=== PATIENT | male | born 1980 ===

== ENCOUNTER → 2022-05-30 12:10 | Outpatient (CLI) | payer OTHER, SELFPAY ==
--- NOTE | 2022-05-30 12:16 | DI.RAD.S_ITS ---
PROCEDURE: XR CHEST 2V INDICATIONS: pneumothorax TECHNIQUE: 2 views of the chest were acquired. COMPARISON: None. FINDINGS: Lungs and pleura: No suspicious focal airspace opacity visualized. Staple line projects over the right mid lung. No pleural effusions or pneumothorax. Mediastinum: Mediastinal contours are normal. Heart size is normal. Bones and chest wall: Multiple right rib fractures. Right clavicle plate screw present. IMPRESSION: No pneumothorax visualized. Dictated by: Dylon Franz M.D. on 05/30/2022 at 15:40 Approved by: Dylon Franz M.D. on 05/30/2022 at 15:43
--- NOTE | 2022-05-30 12:16 | DI.RAD.S_ITS ---
PROCEDURE: XR HAND RT 2V INDICATIONS: RIGHT THUMB FRACTURE TECHNIQUE: 2 views of the hand(s) acquired. COMPARISON: None. FINDINGS: Bones: No acute fracture or dislocations. Screw at the 1st digit interphalangeal joint. Suspect prior ulnar styloid fracture. Suspect prior fracture at the 2nd metacarpal. Carpal bones are normally aligned. No suspicious bony lesions. Soft tissues: No suspicious soft tissue calcifications. IMPRESSION: No acute fracture. Screw at the 1st digit interphalangeal joint. Dictated by: Kong Black M.D. on 05/30/2022 at 14:42 Approved by: Kong Black M.D. on 05/30/2022 at 14:44
--- NOTE | 2022-05-30 12:16 | DI.RAD.S_ITS ---
PROCEDURE: XR SCAPULA RT INDICATIONS: right glenoid, scapular, clavicular fracture TECHNIQUE: 3 views of the scapula were acquired. COMPARISON: None. FINDINGS: Bones: Old fracture deformity of the body of the scapula appears appropriately healed. Normal bone mineralization. Old healed right-sided rib fractures noted associated with pulmonary suture line. Instrumented healed clavicular fracture Soft tissues: Overlying soft tissues appear normal. IMPRESSION: Old healed scapular fracture deformity associated with healed rib fractures and instrumented healed right clavicular fracture Approved by: Daniel Stokes M.D. on 05/30/2022 at 17:56
--- NOTE | 2022-05-30 12:16 | DI.RAD.S_ITS ---
PROCEDURE: XR CLAVICLE RT INDICATIONS: right glenoid, scapular, clavicular fracture TECHNIQUE: 2 views of the clavicle were acquired. COMPARISON: None. FINDINGS: Bones: Healed midclavicular fracture associated with cortical plate and screw hardware in good position Soft tissues: No suspicious soft tissue calcifications. IMPRESSION: Healed instrumented mid clavicular fracture Approved by: Daniel Stokes M.D. on 05/30/2022 at 18:00
--- NOTE | 2022-05-30 12:16 | DI.RAD.S_ITS ---
PROCEDURE: XR RIBS BI 3V INDICATIONS: multiple rib fractures TECHNIQUE: Frontal view of the chest, oblique views of both ribs COMPARISON: [facility], CR, XR CHEST 2V, 05/30/2022, 12:27. FINDINGS: Multiple remote appearing right rib fractures are present. No definite pneumothorax. Staple line projects over the right mid lung. No large pleural effusion. IMPRESSION: Multiple remote appearing right rib fractures. Dictated by: Dylon Franz M.D. on 05/30/2022 at 15:43 Approved by: Dylon Franz M.D. on 05/30/2022 at 15:47
--- NOTE | 2022-05-30 12:16 | DI.RAD.S_ITS ---
PROCEDURE: XR HAND LT 2V INDICATIONS: left metacarpals 3-5 dislocation TECHNIQUE: 2 views of the hand(s) acquired. COMPARISON: None. FINDINGS: Bones: No acute fractures or dislocations. Carpal bones are normally aligned. No suspicious bony lesions. Soft tissues: No suspicious soft tissue calcifications. IMPRESSION: No acute osseous abnormality. Dictated by: Kong Black M.D. on 05/30/2022 at 14:44 Approved by: Kong Black M.D. on 05/30/2022 at 14:45
--- NOTE | 2022-05-30 12:16 | DI.RAD.S_ITS ---
PROCEDURE: XR ANKLE RT MIN 3V INDICATIONS: right talar fracture TECHNIQUE: 3 views of the ankle were acquired. COMPARISON: None. FINDINGS: Bones: No fractures or dislocations. Lucencies in the talus are presumed to represent evidence of previous screw fixation. There is probable mild degenerative change involving the talocalcaneal joint. Ankle mortise is normally aligned. No suspicious bony lesions. Soft tissues: No tibiotalar joint effusion. Achilles tendon appears normal. IMPRESSION: There appears to have been previous orthopedic fixation of the talus. There is now apparent talocalcaneal degenerative change. Dictated by: Chito Malave M.D. on 05/30/2022 at 15:25 Approved by: Chito Malave M.D. on 05/30/2022 at 15:27
--- NOTE | 2022-06-05 10:10 | PM.PFT.1 ---
Pulmonary Function Test Referral & Results Date Patient Seen: 05/30/22 Requesting provider: Malcolm Woodson Results: The spirometry demonstrates an FVC of 2.74 L which is 62% of predicted. The FEV1 was measured at 2.11 L which is 59% of predicted. The FEV1/FVC ratio was 77 which is 97% of predicted. Following the administration of bronchodilator there was 11% improvement in FEV1 and a 40% improvement in FEF 25-75%. Interpretation: This study demonstrates probable mild to moderate obstructive lung disease based on reduction FEV1. FEV1/FVC ratio is preserved however. In addition there is evidence of benefit particularly small airway flow after bronchodilator as noted above No lung volumes or diffusing capacity were performed Clinical correlation suggested
== END ==
PROVIDERS: Referring Provider Chiropractor; Visit Provider Chiropractor
DX: J93.9 Pneumothorax, unspecified (principal); S92.101A Unspecified fracture of right talus, initial encounter for closed fracture; S22.43XS Multiple fractures of ribs, bilateral, sequela; S42.141D Displaced fracture of glenoid cavity of scapula, right shoulder, subsequent encounter for fracture with routine healing; S62.307A Unspecified fracture of fifth metacarpal bone, left hand, initial encounter for closed fracture; S62.514D Nondisplaced fracture of proximal phalanx of right thumb, subsequent encounter for fracture with routine healing; Z87.891 Personal history of nicotine dependence; J98.8 Other specified respiratory disorders
CPT/HCPCS: 71046; 71110; 73000; 73010; 73130; 73610; 94060